=== PATIENT | female | born 2000 | race Caucasian/White ===

== ENCOUNTER 2024-01-03 16:09 | Emergency (ER) | payer MEDICAID ==
[~2024-01-03] VITALS: Ht 160 cm; Wt 63.5 kg
[2024-01-03 16:18] VITALS: BP 113/52; PULSE 60; RESP 18; TEMP 97.5; O2SAT 100
[2024-01-03] MEDS ORDERED: CYCL-711 PO (17:37)
[2024-01-03] MEDS ORDERED: NAPR-54 PO (17:37)
[2024-01-03] MEDS ORDERED: LID5T TP (17:37)
[2024-01-03] MEDS: KETOROLAC 30 MG/ML VIAL IM ONE (18:01)
== END 2024-01-03 17:58 | disposition home or self-care (01) ==
LOC: MED 16:09
DX: G56.01 Carpal tunnel syndrome, right upper limb (principal); Z79.899 Other long term (current) drug therapy
CPT/HCPCS: 81025; 96372; 99283; J1885